=== PATIENT | female | born 1985 | race Caucasian/White ===

== ENCOUNTER 2017-07-25 18:34 | Inpatient (IN) | payer SELFPAY ==
[2017-07-25 19:10] VITALS: BMI 19.3
[2017-07-25] MEDS ORDERED: ACETAMINOPHEN 325 MG TABLET (FP) PO PRN (19:23)
[2017-07-25] MEDS ORDERED: LOPERAMIDE HCL 2 MG CAPSULE PO PRN (19:23)
[2017-07-25] MEDS ORDERED: NICOTINE POLACRILEX 2 MG GUM BC PRN (19:23)
[2017-07-25] MEDS ORDERED: hydrOXYzine PAMOATE 50 MG CAPSULE (FP) PO PRN (19:23)
[2017-07-25] MEDS ORDERED: MAGNESIUM CITRATE 300 ML BOTTLE PO PRN (19:23)
[2017-07-25] MEDS ORDERED: MENTHOL/PHENOL 1 EACH UD MM PRN (19:23)
[2017-07-25] MEDS ORDERED: IBUPROFEN 400 MG TABLET (FP) PO PRN (19:23)
[2017-07-25] MEDS ORDERED: MAGNESIUM HYDROX 2400MG/30ML ORAL SUSPENSION 30 ML CUP PO PRN (19:23)
[2017-07-25] MEDS ORDERED: guaiFENesin/D-METHORPHAN HB 10 ML UNIT-DOSE CUPS PO PRN (19:23)
[2017-07-25] MEDS ORDERED: METHADONE HCL 10 MG TABLET (FOR DETOX USE ONLY) PO ONE ×2 (19:23→23:00)
[2017-07-25] MEDS ORDERED: P-EPHED 60MG/TRIPROLIDI 2.5MG TABLET PO PRN (19:23)
[2017-07-25] MEDS ORDERED: MAG HYDROX/AL HYDROX/SIMETH 30 ML UNIT-DOSE CUP PO PRN (19:23)
--- NOTE | 2017-07-25 19:33 | HP ---
COWS - Scale Resting Pulse: 2= RI 101-120 Sweatin=Flushed/Facial Moisture Restless Observation: 3= Extraneous Movement Pupil Size: 2= Moderately Dilated Bone or Joint Aches: 1= Mild Discomfort Runny Nose/ Eye Tearin= Runny Nose/Eyes GI Upset > 30mins: 1= Stomach Cramp Tremor Observation: 2= Slight Tremor Visible Yawning Observation: 2= >3x During Session Anxiety or Irritability: 2=Irritable/Anxious Goose Flesh Skin: 3=Piloerection COWS Score: 22 Admission [facility] - HPI Chief Complaint: Withdrawal sx. Allergies/Adverse Reactions: Allergies Allergy/AdvReac Type Severity Reaction Status Date / Time Penicillins Allergy Verified 07/25/17 19:22 History of Present Illness: 32 y/o woman with a 6 months hx. of heroin dependence is admitted for detox. Pt. denies previous treatment. Prior to using heroin she was using percocet for 5 yrs. Exam Limitations: No Limitations - Ebola screening Have you traveled outside of the country in the last 21 days: No Have you had contact with anyone from an Ebola affected area: No Have you been sick,other than usual withdrawal symptoms: No Do you have a fever: No - Review of Systems Constitutional: Diaphoresis EENT: reports: Tearing, Nose Congestion Respiratory: reports: No Symptoms reported Cardiac: reports: No Symptoms Reported GI: reports: Nausea, Abdominal cramping : reports: No Symptoms Reported Musculoskeletal: reports: Back Pain, Joint Pain, Muscle Pain Integumentary: reports: Flushing, Sweating Neuro: reports: Tremors Endocrine: reports: No Symptoms Reported Hematology: reports: No Symptoms Reported Psychiatric: reports: No Sypmtoms Reported Other Systems: Reviewed and Negative Patient History - Patient Medical History Hx Anemia: No Hx Asthma: No Hx Chronic Obstructive Pulmonary Disease (COPD): No Hx Cancer: No Hx Cardiac Disorders: No Hx Congestive Heart Failure: No Hx Hypertension: No Hx Hypercholesterolemia: No Hx Pacemaker: No HX Cerebrovascular Accident: No Hx Seizures: No Hx Dementia: No Hx Diabetes: No Hx Gastrointestinal Disorders: No Hx Liver Disease: No Hx Genitourinary Disorders: No Hx Sexually Transmitted Disorders: Yes (HPV) Hx Renal Disease (ESRD): No Hx Thyroid Disease: No Hx Human Immunodeficiency Virus (HIV): No Hx Hepatitis C: No Hx Depression: Yes (since the of farther in 12/2015) Hx Suicide Attempt: No Hx Bipolar Disorder: No Hx Schizophrenia: No - Patient Surgical History Past Surgical History: No - PPD History Previous Implant?: Yes Documented Results: Negative w/o proof Implanted On Prior [facility] Admission?: No PPD to be Administered?: Yes - Reproductive History Patient is a Female of Child Bearing Age (11 -55 yrs old): Yes Last Menstrual Period: 06/30/17 Patient : No - Smoking Cessation Smoking history: Current every day smoker Aproximately how many cigarettes per day: 10 Hx Chewing Tobacco Use: No Initiated information on smoking cessation: Yes 'Breaking Loose' booklet given: 07/25/17 - Substance & Tx. History Hx Alcohol Use: No Hx Substance Use: Yes Substance Use Type: Heroin Hx Substance Use Treatment: Yes (Suboxone x 2 yrs.) - Substances Abused Heroin Route: Inhalation Frequency: Daily Amount used: 14 bags Age of first use: 31 Date of Last Use: 07/24/17 Family Disease History - Family Disease History Family Disease History: Diabetes: Father (melanoma, ), [place]: Father Admission Physical Exam [facility] - Vital Signs Vital Signs: Vital Signs - 24 hr 07/25/17 19:00 Temperature 97.7 F Pulse Rate 114 H Respiratory 18 Rate Blood Pressure 103/62 - Physical General Appearance: Yes: Tremorous, Irritable, Sweating, Anxious HEENTM: Yes: Nasal Congestion, Rhinorrhea Respiratory: Yes: Chest Non-Tender, Lungs Clear, Normal Breath Sounds Neck: Yes: Supple Breast: Yes: Breast Exam Deferred Cardiology: Yes: Regular Rhythm, Regular Rate, S1, S2 Abdominal: Yes: Normal Bowel Sounds, Non Tender, Flat, Soft Genitourinary: Yes: Within Normal Limits Back: Yes: Within Normal Limits Musculoskeletal: Yes: Within Normal Limits Extremities: Yes: Tremors Neurological: Yes: Fully Oriented, Alert Integumentary: Yes: Diaphoresis Lymphatic: Yes: Within Normal Limits - Diagnostic (1) Opioid dependence with withdrawal Current Visit: Yes Status: Acute Cleared for Admission [facility] - Detox or Rehab [facility] Level of Care: Medically Managed Detox Regimen/Protocol: Methadone [facility] Breath Alcohol Content Breath Alcohol Content: 0 Urine Pregancy Test - Result Urine Test Results: Negative- NO Line Present Urine Drug Screen - Results Drug Screen Negative: No Urine Drug Screen Results: OPI-Opiates, BZO-Benzodiazepines
[2017-07-25] MEDS ORDERED: METHADONE HCL 10 MG TABLET (FOR DETOX USE ONLY) ONE (22:04)
[2017-07-25] MEDS: THIAMINE HCL 100 MG TABLET (FP) PO SCH (22:09)
[2017-07-25] MEDS: diazePAM 5 MG TABLET PO PRN (22:10)
[2017-07-25] MEDS: diphenhydrAMINE HCL 50 MG CAPSULE PO PRN (22:10)
[2017-07-25] MEDS: NICOTINE 21 MG/24 HOURS TOPICAL PATCH TD SCH (22:13)
[2017-07-25 22:58] LABS: URINE APPEARANCE CLEAR; URINE BILIRUBIN NEGATIVE (NEGATIVE); URINE BLOOD NEGATIVE (NEGATIVE); URINE COLOR YELLOW; URINE GLUCOSE (UA) NEGATIVE (NEGATIVE); URINE KETONE 2+ (NEGATIVE); URINE NITRITE NEGATIVE (NEGATIVE); URINE PROTEIN NEGATIVE (NEGATIVE); URINE UROBILINOGEN NEGATIVE mg/dL (0.2-1.0)
[2017-07-26] MEDS: diphenhydrAMINE HCL 50 MG CAPSULE PO PRN (00:33)
[2017-07-26] MEDS ORDERED: TRIMETHOBENZAMIDE HCL 200MG/2ML INJ IM PRN (00:57)
[2017-07-26] MEDS: diazePAM 5 MG TABLET PO PRN ×4 (02:06→21:28)
--- NOTE | 2017-07-26 09:05 | PN ---
[facility] COWS - Scale Resting Pulse: 1= ND 81-100 Sweatin=Flushed/Facial Moisture Restless Observation: 1= Difficult to Sit Still Pupil Size: 1= Pupils >than Normal Bone or Joint Aches: 2= Severe Diffuse Aches Runny Nose/ Eye Tearin= Runny Nose/Eyes GI Upset > 30mins: 3= Vomiting/Diarrhea Tremor Observation of Outstretched Hands: 2= Slight Tremor Visible Yawning Observation: 1= 1-2x During Session Anxiety or Irritability: 2=Irritable/Anxious Goose Flesh Skin: 0=Smooth Skin COWS Score: 17 [facility] Progress Note (SOAP) Subjective: Anxiety,tremors,sweating,interrupted sleep,restless Objective: 07/26/17 09:02 Vital Signs 07/26/17 06:00 Temperature 98.6 F Pulse Rate 83 Respiratory 20 Rate Blood Pressure 120/76 Laboratory Tests 07/25/17 22:45 Urine Color Yellow Urine Appearance Clear Urine pH 6.0 Urine Protein Negative Urine Glucose (UA) Negative Urine Ketones 2+ H Urine Blood Negative Urine Nitrite Negative Urine Bilirubin Negative Urine Urobilinogen Negative u/a noted Assessment: 07/26/17 09:02 Withdrawal sx. Plan: Continue detox [facility] prn
[2017-07-26 09:55] LABS: MCH 29.4 pg (25.7-33.7); MEAN CELL VOLUME 89.1 fl (80-96); MEAN PLT VOLUME 7.3 fl (7.5-11.1); PLATELET COUNT 364 K/MM3 (134-434); RDW 13.1 % (11.6-15.6); WHITE BLOOD COUNT 14.1 K/mm3 (4.0-10.0)
[2017-07-26] MEDS ORDERED: METHADONE HCL 10 MG TABLET (FOR DETOX USE ONLY) PO ONE (10:00)
[2017-07-26] MEDS ORDERED: ONDANSETRON *ODT* 4 MG TABLET SL ONE (10:15)
[2017-07-26 10:19] LABS: ALBUMIN 4.3 g/dl (3.4-5.0); ALK PHOS 69 U/L (45-117); ANION GAP 12 (8-16); CALCIUM 9.5 mg/dL (8.5-10.1); CO2 26 mmol/L (21-32); CREATININE 0.8 mg/dL (0.55-1.02); GLUCOSE,RANDOM 102 mg/dL (74-106); SGOT/AST 12 U/L (15-37); SGPT/ALT 18 U/L (12-78); TOT PROT 7.7 g/dl (6.4-8.2)
[2017-07-26] MEDS: PRENATAL VITAMINS W/ FOLIC ACID TABLET (FP) PO SCH (10:22)
[2017-07-26] MEDS: NICOTINE 21 MG/24 HOURS TOPICAL PATCH TD SCH (10:22)
--- NOTE | 2017-07-26 11:01 | EKG ---
Test Reason : Blood Pressure : / mmHG Vent. Rate : 097 BPM Atrial Rate : 097 BPM P-R Int : 150 ms QRS Dur : 090 ms QT Int : 362 ms P-R-T Axes : 083 064 067 degrees QTc Int : 459 ms NORMAL SINUS RHYTHM NORMAL ECG NO PREVIOUS ECGS AVAILABLE Confirmed by VELVET DAVIS, SELVIN ([id number]) on 07/26/2017 11:00:57 AM Referred By: Genevieve Black Confirmed By:SELVIN VERDIN MD
[2017-07-26] MEDS ORDERED: FLU VACCINE QUAD 60 MCG/0.5 ML (MDV 17-18) IM ONE (12:00)
--- NOTE | 2017-07-26 13:11 | CONSULT ---
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 She started using heroin at age 31, consumes 14 bags daily. Last used on 07/24/17 Medical History: Unremakable. Smokes 10 cigaretes daily Psychiatric History: Denies history of previous psychiatric treatment. However, reports feeling very anxious and sleeping poorly at present Physical/Sexual Abuse/Trauma History: Denies history of verbal, physical or sexual abuse as well as DV relationship Additional Comment: Reports history of 2 previous misdemeanor arrests. Mental Status Exam - Mental Status Exam Alert and Oriented to: Time, Place, Person Cognitive Function: Fair Patient Appearance: Well Groomed Mood: Anxious (very) Affect: Appropriate Patient Behavior: Cooperative Speech Pattern: Clear Voice Loudness: Normal Thought Process: Intact, Goal Oriented Thought Disorder: Not Present Hallucinations: Denies Suicidal Ideation: Denies Homicidal Ideation: Denies Insight/Judgement: Poor Sleep: Poorly Appetite: Fair Muscle strength/Tone: Normal Gait/Station: Normal Psychiatric Findings - Problem List (Merkel 1, 2,3) (1) Substance induced mood disorder Current Visit: Yes Status: Acute (2) Substance-induced sleep disorder Current Visit: Yes Status: Acute (3) Opioid dependence with withdrawal Current Visit: Yes Status: Acute (4) Nicotine dependence Current Visit: Yes Status: Acute - Initial Treatment Plan Initial Treatment Plan: 1) Start Ambien 10 mg po HS prn for insomnia. 2) Continue inpatient detoxification
[2017-07-26] MEDS ORDERED: ZOLPIDEM TARTRATE 10 MG TABLET (PARK CARE ONLY) PO PRN (13:20)
[2017-07-26 13:54] LABS: URINE LEUK ESTERASE Negative (NEGATIVE)
[2017-07-26] MEDS: POTASSIUM CHLORIDE TABS 20 MEQ TABLET.ER (FP) PO SCH (15:41)
[2017-07-26] MEDS: ONDANSETRON *ODT* 4 MG TABLET SL PRN (17:34)
[2017-07-26] MEDS: TRIMETHOBENZAMIDE HCL 200MG/2ML INJ IM PRN (20:32)
[2017-07-26] MEDS: THIAMINE HCL 100 MG TABLET (FP) PO SCH (21:28)
[2017-07-27] MEDS: diazePAM 5 MG TABLET PO PRN (02:56)
[2017-07-27] MEDS: ONDANSETRON *ODT* 4 MG TABLET SL PRN (03:11)
[2017-07-27] MEDS: TRIMETHOBENZAMIDE HCL 200MG/2ML INJ IM PRN (07:43)
--- NOTE | 2017-07-27 09:10 | PN ---
S COWS - Scale Resting Pulse: 0= NM 80 or Below Sweatin=Flushed/Facial Moisture Restless Observation: 3= Extraneous Movement Pupil Size: 1= Pupils >than Normal Bone or Joint Aches: 2= Severe Diffuse Aches Runny Nose/ Eye Tearin= Runny Nose/Eyes GI Upset > 30mins: 3= Vomiting/Diarrhea Tremor Observation of Outstretched Hands: 2= Slight Tremor Visible Yawning Observation: 2= >3x During Session Anxiety or Irritability: 4=Extreme Anxiety Goose Flesh Skin: 0=Smooth Skin COWS Score: 21 [facility] Progress Note (SOAP) Subjective: ALERT,ABDOMINAL PAIN,NAUSEA AND VOMITING,DIARRHEA Objective: 07/27/17 09:02 Vital Signs Temperature 96.4 F L 07/27/17 06:10 Pulse Rate 58 L 07/27/17 06:10 Respiratory Rate 18 07/27/17 06:10 Blood Pressure 117/68 07/27/17 06:10 O2 Sat by Pulse Oximetry (%) EKG NSR,NORMAL ECG Laboratory Last Values WBC 14.1 K/mm3 (4.0-10.0) H 07/26/17 07:30 RBC 4.91 M/mm3 (3.60-5.2) 07/26/17 07:30 Hgb 14.5 GM/dL (10.7-15.3) 07/26/17 07:30 Hct 43.8 % (32.4-45.2) 07/26/17 07:30 MCV 89.1 fl (80-96) 07/26/17 07:30 MCH 29.4 pg (25.7-33.7) 07/26/17 07:30 MCHC 33.0 g/dl (32.0-36.0) 07/26/17 07:30 RDW 13.1 % (11.6-15.6) 07/26/17 07:30 Plt Count 364 K/MM3 (134-434) 07/26/17 07:30 MPV 7.3 fl (7.5-11.1) L 07/26/17 07:30 Sodium 141 mmol/L (136-145) 07/26/17 07:30 Potassium 3.4 mmol/L (3.5-5.1) L 07/26/17 07:30 Chloride 103 mmol/L (98-107) 07/26/17 07:30 Carbon Dioxide 26 mmol/L (21-32) 07/26/17 07:30 Anion Gap 12 (8-16) 07/26/17 07:30 BUN 6 mg/dL (7-18) L 07/26/17 07:30 Creatinine 0.8 mg/dL (0.55-1.02) 07/26/17 07:30 Creat Clearance w eGFR > 60 (>60) 07/26/17 07:30 Random Glucose 102 mg/dL (74-106) 07/26/17 07:30 Calcium 9.5 mg/dL (8.5-10.1) 07/26/17 07:30 Total Bilirubin 1.0 mg/dL (0.2-1.0) 07/26/17 07:30 AST 12 U/L (15-37) L 07/26/17 07:30 ALT 18 U/L (12-78) 07/26/17 07:30 Alkaline Phosphatase 69 U/L (45-117) 07/26/17 07:30 Total Protein 7.7 g/dl (6.4-8.2) 07/26/17 07:30 Albumin 4.3 g/dl (3.4-5.0) 07/26/17 07:30 Urine Color Yellow 07/25/17 22:45 Urine Appearance Clear 07/25/17 22:45 Urine pH 6.0 (5.0-8.0) 07/25/17 22:45 Ur Specific [place] 1.020 (1.005-1.025) 07/25/17 22:45 Urine Protein Negative (NEGATIVE) 07/25/17 22:45 Urine Glucose (UA) Negative (NEGATIVE) 07/25/17 22:45 Urine Ketones 2+ (NEGATIVE) H 07/25/17 22:45 Urine Blood Negative (NEGATIVE) 07/25/17 22:45 Urine Nitrite Negative (NEGATIVE) 07/25/17 22:45 Urine Bilirubin Negative (NEGATIVE) 07/25/17 22:45 Urine Urobilinogen Negative mg/dL (0.2-1.0) 07/25/17 22:45 Ur Leukocyte Esterase Negative (NEGATIVE) 07/25/17 22:45 RPR Titer Nonreactive (NONREACTIVE) 07/26/17 07:30 Assessment: 07/27/17 09:03 WITHDRAWAL SYMPTOM Plan: CONTINUE DETOX
--- NOTE | 2017-07-27 09:20 | PN ---
RAPHAEL Progress Note Note: ABDOMINAL PAIN WITH PERSISTENT VOMITING DRY LIP AND MUCOSA INTRACTABLE ABDOMINAL PAIN AND VOMITING PATIENT TO BE TRANSFERRED TO [facility] ER FOR EVALUATION AND TREATMENT
[2017-07-27] MEDS ORDERED: METHADONE HCL 5 MG TABLET (FOR DETOX USE ONLY) PO ONE (10:00)
[2017-07-27 10:04] VITALS: BP 129/55; PULSE 99; TEMP 97.7
[2017-07-27] MEDS: NICOTINE 21 MG/24 HOURS TOPICAL PATCH TD SCH (11:07)
[2017-07-27] MEDS: POTASSIUM CHLORIDE TABS 20 MEQ TABLET.ER (FP) PO SCH (11:07)
[2017-07-27] MEDS: PRENATAL VITAMINS W/ FOLIC ACID TABLET (FP) PO SCH (11:07)
[2017-07-28] MEDS ORDERED: METHADONE HCL 5 MG TABLET (FOR DETOX USE ONLY) PO ONE (10:00)
--- NOTE | 2017-07-28 17:41 | DS ---
[facility] Detox Discharge Summary Admission Date: 07/25/17 Discharge Date: 07/27/17 - History Present History: Opioid Dependence Additional Comments: Patient transferred to [facility] and admitted from ED with intractable nausea and vomiting, hypokalemia and dehydration. Pertinent Past History: nicotine dependence, anxiety, depression , insomnia - Physical Exam Results Vital Signs: Vital Signs Temperature 97.7 F 07/27/17 10:04 Pulse Rate 99 H 07/27/17 10:04 Respiratory Rate 18 07/27/17 10:04 Blood Pressure 129/55 07/27/17 10:04 O2 Sat by Pulse Oximetry (%) Pertinent Admission Physical Exam Findings: opioid withdrawal sx - Treatment Hospital Course: Detox Protocol Followed Patient has Accepted a Rehab Referral to: Unknown at this time but would like to go to rehab - Medication Discharge Medications: Ambulatory Orders Methadone (Detox) [Dolophine -] 20 mg PO DAILY 07/27/17 - Diagnosis (1) Nausea & vomiting Status: Acute (2) Nicotine dependence Status: Acute (3) Opioid dependence with withdrawal Status: Acute (4) Substance induced mood disorder Status: Acute (5) Substance-induced sleep disorder Status: Acute - AMA Did Patient Leave Against Medical Advice: No
[2017-07-29] MEDS ORDERED: METHADONE HCL 10 MG TABLET (FOR DETOX USE ONLY) PO ONE (10:00)
[2017-07-30] MEDS ORDERED: METHADONE HCL 5 MG TABLET (FOR DETOX USE ONLY) PO ONE (06:00)
== END 2017-07-27 19:07 | disposition short-term general hospital (02) | DRG 773 ==
LOC: YASAS 18:34 → Y6N 19:47
PROVIDERS: ADMIT Internal Medicine; ATTEND Internal Medicine
PROC: HZ2ZZZZ Detoxification Services for Substance Abuse Treatment (ICD-10-PCS; principal; 2017-07-25)
DX: F11.23 Opioid dependence with withdrawal (principal); F17.210 Nicotine dependence, cigarettes, uncomplicated; F19.24 Other psychoactive substance dependence with psychoactive substance-induced mood disorder; F19.282 Other psychoactive substance dependence with psychoactive substance-induced sleep disorder; R11.2 Nausea with vomiting, unspecified; R19.7 Diarrhea, unspecified; E87.6 Hypokalemia; E86.0 Dehydration; Z88.0 Allergy status to penicillin; Z87.42 Personal history of other diseases of the female genital tract
CPT/HCPCS: 36415; 80053; 81003; 85027; 86593; 93005; 93010

== ENCOUNTER 2017-07-27 10:17 | Inpatient (IN) | payer SELFPAY ==
[2017-07-27 10:36] VITALS: BMI 18.8
--- NOTE | 2017-07-27 10:46 | PDOC ---
History of Present Illness - General Chief Complaint: Nausea/Vomiting Stated Complaint: VOMITING Time Seen by Provider: 07/27/17 10:45 Past History - Past Medical History Allergies/Adverse Reactions: Allergies Allergy/AdvReac Type Severity Reaction Status Date / Time Penicillins Allergy Verified 07/27/17 10:36 Home Medications: Ambulatory Orders NK [No Known Home Medication] 07/25/17 Anemia: No Asthma: No Cancer: No Cardiac Disorders: No CVA: No COPD: No CHF: No Dementia: No Diabetes: No GI Disorders: No Disorders: No HTN: No Hypercholesterolemia: No Kidney Stones: No Liver Disease: No Psychiatric Problems: Yes (ANXIETY/DEPRESSION) Seizures: No Thyroid Disease: No - Reproductive History PID: No - Suicide/Smoking/Psychosocial Hx Smoking History: Current every day smoker Number of Cigarettes Smoked Daily: 10 Information on smoking cessation initiated: No 'Breaking Loose' booklet given: 07/25/17 Hx Alcohol Use: No Drug/Substance Use Hx: Yes (HEROIN) Substance Use Type: Heroin Hx Substance Use Treatment: Yes (Suboxone x 2 yrs.) *Physical Exam - Vital Signs Last Vital Signs Temp Pulse Resp BP Pulse Ox 98.6 F 96 H 16 101/75 100 07/27/17 10:20 07/27/17 10:20 07/27/17 10:20 07/27/17 10:20 07/27/17 10:20
[2017-07-27] MEDS ORDERED: ALBUTEROL SO4 0.083% IH SOL 2.5 MG/3 ML VIAL.NEB. NEB ONE ×2 (11:03→11:11)
[2017-07-27] MEDS ORDERED: ONDANSETRON 4 MG/2 ML VIAL IVPB ONE (11:03)
[2017-07-27] MEDS ORDERED: SODIUM CHLORIDE 1,000 ML IV STA (11:03)
[2017-07-27] MEDS ORDERED: ONDANSETRON 4 MG/2 ML VIAL ONE (11:11)
[2017-07-27 11:23] LABS: BASOPHIL 0.7 % (0-2.0); EOSINOPHIL 0.1 % (0-4.5); MCHC 34.4 g/dl (32.0-36.0); MEAN CELL VOLUME 87.3 fl (80-96); MEAN PLT VOLUME 7.4 fl (7.5-11.1); NEUTROPHILS 77.9 % (42.8-82.8); PLATELET COUNT 398 K/MM3 (134-434); RDW 13.1 % (11.6-15.6); WHITE BLOOD COUNT 16.9 K/mm3 (4.0-10.0)
[2017-07-27 11:25] LABS: URINE APPEARANCE CLOUDY; URINE BILIRUBIN NEGATIVE (NEGATIVE); URINE BLOOD 3+ (NEGATIVE); URINE COLOR AMBER; URINE GLUCOSE (UA) NEGATIVE (NEGATIVE); URINE KETONE TRACE (NEGATIVE); URINE NITRITE NEGATIVE (NEGATIVE); URINE UROBILINOGEN NEGATIVE mg/dL (0.2-1.0)
[2017-07-27] MEDS ORDERED: METHADONE HCL 10 MG TABLET PO ONE (11:27)
[2017-07-27 11:29] LABS: URINE PROTEIN 2+ (NEGATIVE)
[2017-07-27 11:38] LABS: URINE BACTERIA FEW /hpf (NONE SEEN); URINE MUCUS MODERATE; URINE RBC 966 /hpf (0-3); URINE WBC 68 /hpf (3-5)
[2017-07-27 11:41] LABS: ALBUMIN 4.3 g/dl (3.4-5.0); ANION GAP 16 (8-16); CALCIUM 9.8 mg/dL (8.5-10.1); CO2 30 mmol/L (21-32); GLUCOSE,RANDOM 101 mg/dL (74-106)
[2017-07-27] MEDS ORDERED: METHADONE HCL 10 MG TABLET ONE (11:42)
[2017-07-27 11:45] LABS: ALK PHOS 68 U/L (45-117); BILIRUBIN,TOTAL 0.6 mg/dL (0.2-1.0); CREATININE 0.9 mg/dL (0.55-1.02); SGOT/AST 65 U/L (15-37); SGPT/ALT 33 U/L (12-78); TOT PROT 7.9 g/dl (6.4-8.2)
--- NOTE | 2017-07-27 11:51 | PDOC ---
History of Present Illness - History of Present Illness Initial Comments: 07/27/17 11:47 32 y/o F with a PMHx of heroin abuse presents to the ED sent from [facility] with generalized pain and weakness for 2 days. Patient reports associated episodes of chills, nausea and vomiting. She also reports diffuse cramp-like abdominal pain and cough. Her last heroin use was 3 days ago. Her last dose of Methadone was 20 mg yesterday. She has been using heroin for 6 months and only smokes. She denies IV drug use. She denies alcohol use. She denies chest pain, SOB. Denies diarrhea, constipation. Denies fever. Denies dysuria or urinary frequency. Denies flank pain. Is not sexually active. Is currently on her period. <Michael Gupta - Last Filed: 07/27/17 13:13> <Megan Dailey - Last Filed: 07/27/17 14:30> - General Chief Complaint: Nausea/Vomiting Stated Complaint: VOMITING Time Seen by Provider: 07/27/17 10:45 Past History - Past Medical History Anemia: No Asthma: No Cancer: No Cardiac Disorders: No CVA: No COPD: No CHF: No Dementia: No Diabetes: No GI Disorders: No Disorders: No HTN: No Hypercholesterolemia: No Kidney Stones: No Liver Disease: No Psychiatric Problems: Yes (ANXIETY/DEPRESSION) Seizures: No Thyroid Disease: No - Reproductive History PID: No - Suicide/Smoking/Psychosocial Hx Smoking History: Current every day smoker Number of Cigarettes Smoked Daily: 10 Information on smoking cessation initiated: No 'Breaking Loose' booklet given: 07/25/17 Hx Alcohol Use: No Drug/Substance Use Hx: Yes (HEROIN) Substance Use Type: Heroin Hx Substance Use Treatment: Yes (Suboxone x 2 yrs.) <Michael Gupta - Last Filed: 07/27/17 13:13> <Megan Dailey - Last Filed: 07/27/17 14:30> - Past Medical History Allergies/Adverse Reactions: Allergies Allergy/AdvReac Type Severity Reaction Status Date / Time Penicillins Allergy Verified 07/27/17 10:36 Home Medications: Ambulatory Orders Methadone (Detox) [Dolophine -] 20 mg PO DAILY 07/27/17 Review of Systems - Review of Systems Comments:: 07/27/17 11:48 "GENERAL/CONSTITUTIONAL: (+) generalized pain, weakness, chills. No fever. HEAD, EYES, EARS, NOSE AND THROAT: No change in vision. No ear pain or discharge. No sore throat. CARDIOVASCULAR: No chest pain or shortness of breath. RESPIRATORY: (+) cough. No wheezing, or hemoptysis. GASTROINTESTINAL: (+) nausea, vomiting, abdominal cramping. No diarrhea or constipation. GENITOURINARY: No dysuria, frequency, or change in urination. MUSCULOSKELETAL: No joint or muscle swelling or pain. No neck or back pain. SKIN: No rash NEUROLOGIC: No headache, vertigo, loss of consciousness, or change in strength/ sensation. ENDOCRINE: No increased thirst. No abnormal weight change. HEMATOLOGIC/LYMPHATIC: No anemia, easy bleeding, or history of blood clots. ALLERGIC/IMMUNOLOGIC: No hives or skin allergy." <Michael Gupta - Last Filed: 07/27/17 13:13> *Physical Exam - Vital Signs Last Vital Signs Temp Pulse Resp BP Pulse Ox 98.6 F 96 H 16 101/75 100 07/27/17 10:20 07/27/17 10:20 07/27/17 10:20 07/27/17 10:20 07/27/17 10:20 - Physical Exam Comments: 07/27/17 11:48 "GENERAL: Awake, alert, and fully oriented, in no acute distress HEAD: No signs of trauma EYES: PERRLA, EOMI, sclera anicteric, conjunctiva clear ENT: Auricles normal inspection, hearing grossly normal, nares patent, oropharynx clear without exudates. Moist mucosa NECK: Nontender, no stepoffs, Normal ROM, supple, no lymphadenopathy, JVD, or masses LUNGS: Breath sounds equal, clear to auscultation bilaterally. No wheezes, and no crackles HEART: Regular rate and rhythm, normal S1 and S2, no murmurs, rubs or gallops ABDOMEN: Soft, nontender, normoactive bowel sounds. No guarding, no rebound. No masses EXTREMITIES: Normal range of motion, no edema. No clubbing or cyanosis. No cords, erythema, or tenderness NEUROLOGICAL: Cranial nerves II through XII intact. 5/5 strength and sensation in all extremities, Normal speech, normal gait SKIN: Warm, Dry, normal turgor, no rashes or lesions noted. " <Ou,Michael - Last Filed: 07/27/17 13:13> - Vital Signs Last Vital Signs Temp Pulse Resp BP Pulse Ox 97.5 F L 64 18 117/72 98 07/27/17 13:50 07/27/17 13:50 07/27/17 13:50 07/27/17 13:50 07/27/17 13:50 <Megan Dailey - Last Filed: 07/27/17 14:30> ED Treatment Course - LABORATORY CBC & Chemistry Diagram: 07/27/17 11:08 07/27/17 11:08 - ADDITIONAL ORDERS Additional order review: Laboratory Results 07/27/17 07/27/17 11:08 11:08 Sodium 138 Potassium 3.2 L Chloride 92 L D Carbon Dioxide 30 Anion Gap 16 BUN 14 D Creatinine 0.9 Creat Clearance w eGFR > 60 Random Glucose 101 Calcium 9.8 Total Bilirubin 0.6 D AST 65 H D ALT 33 D Alkaline Phosphatase 68 Total Protein 7.9 Albumin 4.3 Lipase 206 Urine Color [place] Urine Appearance Cloudy Urine pH 8.0 D Urine Protein 2+ H Urine Glucose (UA) Negative Urine Ketones Trace H Urine Blood 3+ H Urine Nitrite Negative Urine Bilirubin Negative Urine Urobilinogen Negative Urine RBC 966 Urine WBC 68 Ur Epithelial Cells Moderate Urine Bacteria Few Urine Mucus Moderate 07/27/17 11:08 RBC 5.39 H MCV 87.3 MCHC 34.4 RDW 13.1 MPV 7.4 L Neutrophils % 77.9 Lymphocytes % 14.4 Monocytes % 6.9 Eosinophils % 0.1 Basophils % 0.7 - RADIOLOGY Radiology Studies Ordered: Category Date Time Status CHEST PA & LAT [RAD] Stat Radiology 07/27/17 11:02 Ordered - Medications Given in the ED: ED Medications Discontinued Medications Generic Name Dose Route Start Last Admin Trade Name Freq PRN Reason Stop Dose Admin Albuterol Sulfate 1 amp 07/27/17 11:03 07/27/17 11:10 Ventolin 0.083% Nebulizer Soln - NEB 07/27/17 11:04 1 amp ONCE ONE Administration Ondansetron HCl 4 mg 07/27/17 11:03 07/27/17 11:10 Zofran Injection IVPB 07/27/17 11:04 4 mg ONCE ONE Administration <Ou,Michael - Last Filed: 07/27/17 13:13> - LABORATORY CBC & Chemistry Diagram: 07/27/17 11:08 07/27/17 11:08 - ADDITIONAL ORDERS Additional order review: Laboratory Results 07/27/17 07/27/17 07/27/17 11:24 11:08 11:08 Sodium 138 Potassium 3.2 L Chloride 92 L D Carbon Dioxide 30 Anion Gap 16 BUN 14 D Creatinine 0.9 Creat Clearance w eGFR > 60 Random Glucose 101 Lactic Acid 5.0 H* Calcium 9.8 Total Bilirubin 0.6 D AST 65 H D ALT 33 D Alkaline Phosphatase 68 Total Protein 7.9 Albumin 4.3 Lipase 206 Urine Color [place] Urine Appearance Cloudy Urine pH 8.0 D Urine Protein 2+ H Urine Glucose (UA) Negative Urine Ketones Trace H Urine Blood 3+ H Urine Nitrite Negative Urine Bilirubin Negative Urine Urobilinogen Negative Urine RBC 966 Urine WBC 68 Ur Epithelial Cells Moderate Urine Bacteria Few Urine Mucus Moderate 07/27/17 11:08 RBC 5.39 H MCV 87.3 MCHC 34.4 RDW 13.1 MPV 7.4 L Neutrophils % 77.9 Lymphocytes % 14.4 Monocytes % 6.9 Eosinophils % 0.1 Basophils % 0.7 - RADIOLOGY Radiograph Interpretation: 07/27/17 14:29 Chest X-Ray reported by Dr. Maeve Tillman Impression: Unremarkable examination without evidence of acute lung disease. - Medications Given in the ED: ED Medications Discontinued Medications Generic Name Dose Route Start Last Admin Trade Name Freq PRN Reason Stop Dose Admin Albuterol Sulfate 1 amp 07/27/17 11:03 07/27/17 11:10 Ventolin 0.083% Nebulizer Soln - NEB 07/27/17 11:04 1 amp ONCE ONE Administration Sodium Chloride 1,000 mls @ 1,000 mls/hr 07/27/17 11:03 07/27/17 11:10 Normal Saline - IV 07/27/17 12:02 1,000 mls/hr ASDIR STA Administration Lorazepam 1 mg 07/27/17 13:32 07/27/17 13:48 Ativan Injection - IVPUSH 07/27/17 13:33 1 mg ONCE ONE Administration Methadone HCl 20 mg 07/27/17 11:27 07/27/17 11:47 Dolophine - PO 07/27/17 11:28 20 mg ONCE ONE Administration Metoclopramide HCl 10 mg 07/27/17 13:32 07/27/17 13:48 Reglan Injection - IVPB 07/27/17 13:33 10 mg ONCE ONE Administration Ondansetron HCl 4 mg 07/27/17 11:03 07/27/17 11:10 Zofran Injection IVPB 07/27/17 11:04 4 mg ONCE ONE Administration <Megan Dailey - Last Filed: 07/27/17 14:30> Medical Decision Making - Medical Decision Making 07/27/17 11:49 32 F with generalized bodyaches, malaise, nausea, vomiting after stopping heroin use 3 days ago. Pt likely in active opiate withdrawal. No focal abdominal tenderness on exam. Pt with no fevers or signs of infection. - Labs, UA, UPT - IVF, zofran, methadone 07/27/17 13:05 Pt reassessed s/p meds, still with active nausea and vomiting. Repeat abdominal exam continues to be non-focal. Pt's symptoms consistent with opiate withdrawal. Pt's labwork notable for lactate 5.0. Will fluid resuscitate and recheck. 07/27/17 13:11 Pt to be admitted for continued IV hydration and nausea control, as well as serial abdominal exams with possible imaging if pt continues to not tolerate PO. Case discussed in detail with admitting physician including history, physical exam and ancillary studies. Admitting physician has assumed care for the patient and will follow all pending diagnostics and complete the evaluation and treatment. <Michael Gupta - Last Filed: 07/27/17 13:13> *DC/Admit/Observation/Transfer - Discharge Dispostion Admit: Yes - Attestations Physician Attestion: 07/27/17 13:13 I, Dr. Michael Gupta MD, attest that this document has been prepared under my direction and personally reviewed by me in its entirety. I further attest, that it accurately reflects all work, treatment, procedures and medical decision -making performed by me. <Michael Gupta - Last Filed: 07/27/17 13:13> <Megan Dailey - Last Filed: 07/27/17 14:30> Diagnosis at time of Disposition: Opiate withdrawal, Nausea & vomiting
[2017-07-27] MEDS: DEXTROSE 5%-0.45% SALINE 1,000 ML IV SCH (12:33)
[2017-07-27] MEDS ORDERED: METOCLOPRAMIDE HCL INJECTION 10 MG/2 ML VIAL IVPB ONE (13:32)
[2017-07-27] MEDS ORDERED: METOCLOPRAMIDE HCL INJECTION 10 MG/2 ML VIAL ONE (13:39)
[2017-07-27] MEDS ORDERED: LORazepam 2 MG/ML SDV VIAL ONE (13:40)
--- NOTE | 2017-07-27 17:12 | HP ---
Admitting History and Physical - Primary Care Physician PCP: Douglas Boone - Admission History of Present Illness: 32 y/o F with a PMHx of heroin abuse presents to the ED sent from [facility] with generalized pain and weakness for 2 days. Patient reports associated episodes of chills, nausea and vomiting. She also reports diffuse cramp-like abdominal pain and cough. Her last heroin use was 3 days ago. Her last dose of Methadone was 20 mg yesterday. She has been using heroin for 6 months and only smokes. She denies IV drug use. She denies alcohol use. She denies chest pain, SOB. Denies any other symptom. Is not sexually active. Is currently on her period. - Past Medical History ...LMP: 06/30/17 - Smoking History Smoking history: Current every day smoker Have you smoked in the past 12 months: Yes Aproximately how many cigarettes per day: 10 - Alcohol/Substance Use Hx Alcohol Use: No History of Substance Use: reports: Heroin Home Medications - Allergies Allergies/Adverse Reactions: Allergies Allergy/AdvReac Type Severity Reaction Status Date / Time Penicillins Allergy Verified 07/27/17 10:36 - Home Medications Home Medications: Ambulatory Orders Methadone (Detox) [Dolophine -] 20 mg PO DAILY 07/27/17 Family Disease History - Family Disease History Family Disease History: Diabetes: Father (melanoma, ), CA: Father Physical Examination Vital Signs: Vital Signs Temperature 97.8 F 07/27/17 14:51 Pulse Rate 98 H 07/27/17 14:51 Respiratory Rate 18 07/27/17 14:51 Blood Pressure 115/6 07/27/17 14:51 O2 Sat by Pulse Oximetry (%) 98 07/27/17 13:50 Constitutional: Yes: No Distress HENT: Yes: Atraumatic Neck: Yes: Supple Cardiovascular: Yes: Regular Rate and Rhythm Respiratory: Yes: CTA Bilaterally Gastrointestinal: Yes: Normal Bowel Sounds Extremities: Yes: WNL Peripheral Pulses WNL: Yes Neurological: Yes: Alert, Oriented Problem List - Problems (1) Nausea & vomiting Assessment/Plan: ivf prn zofran Code(s): R11.2 - NAUSEA WITH VOMITING, UNSPECIFIED (2) Nicotine dependence Assessment/Plan: nicotine patch Code(s): F17.200 - NICOTINE DEPENDENCE, UNSPECIFIED, UNCOMPLICATED (3) Opiate withdrawal Assessment/Plan: will get detox consult on methadone Code(s): F11.23 - OPIOID DEPENDENCE WITH WITHDRAWAL (4) Opioid dependence with withdrawal Code(s): F11.23 - OPIOID DEPENDENCE WITH WITHDRAWAL Assessment/Plan Laboratory Tests 07/27/17 07/27/17 07/27/17 11:08 11:08 11:08 WBC 16.9 H RBC 5.39 H Hgb 16.2 H D Hct 47.0 H MCV 87.3 MCH 30.0 MCHC 34.4 RDW 13.1 Plt Count 398 MPV 7.4 L Neutrophils % 77.9 Lymphocytes % 14.4 Monocytes % 6.9 Eosinophils % 0.1 Basophils % 0.7 Sodium 138 Potassium 3.2 L Chloride 92 L D Carbon Dioxide 30 Anion Gap 16 BUN 14 D Creatinine 0.9 Creat Clearance w eGFR > 60 Random Glucose 101 Lactic Acid Calcium 9.8 Total Bilirubin 0.6 D AST 65 H D ALT 33 D Alkaline Phosphatase 68 Total Protein 7.9 Albumin 4.3 Lipase 206 Urine Color Conchis Urine Appearance Cloudy Urine pH 8.0 D Urine Protein 2+ H Urine Glucose (UA) Negative Urine Ketones Trace H Urine Blood 3+ H Urine Nitrite Negative Urine Bilirubin Negative Urine Urobilinogen Negative Urine RBC 966 Urine WBC 68 Ur Epithelial Cells Moderate Urine Bacteria Few Urine Mucus Moderate 07/27/17 11:24 WBC RBC Hgb Hct MCV MCH MCHC RDW Plt Count MPV Neutrophils % Lymphocytes % Monocytes % Eosinophils % Basophils % Sodium Potassium Chloride Carbon Dioxide Anion Gap BUN Creatinine Creat Clearance w eGFR Random Glucose Lactic Acid 5.0 H* Calcium Total Bilirubin AST ALT Alkaline Phosphatase Total Protein Albumin Lipase Urine Color Urine Appearance Urine pH Urine Protein Urine Glucose (UA) Urine Ketones Urine Blood Urine Nitrite Urine Bilirubin Urine Urobilinogen Urine RBC Urine WBC Ur Epithelial Cells Urine Bacteria Urine Mucus Active Medications Generic Name Dose Route Start Last Admin Trade Name Freq PRN Reason Stop Dose Admin Dextrose/Sodium Chloride 1,000 mls @ 100 mls/hr 07/27/17 11:15 07/27/17 12:33 D5-1/2ns - IV 100 mls/hr ASDIR RAFFAELE Administration Ibuprofen 600 mg 07/27/17 21:23 Motrin - PO Q6H PRN FEVER Methadone HCl 20 mg 07/28/17 06:00 Dolophine - PO DAILY@0600 [facility]FFAELE Ondansetron HCl 4 mg 07/27/17 21:24 Zofran Injection IVPB Q4H PRN NAUSEA AND/OR VOMITING
[2017-07-27 19:57] LABS: URINE LEUK ESTERASE TRACE (NEGATIVE)
[2017-07-27] MEDS: ONDANSETRON 4 MG/2 ML VIAL IVPB PRN (22:25)
[2017-07-27] MEDS: IBUPROFEN 600 MG TABLET (FP) PO PRN (22:26)
[2017-07-28] MEDS: ONDANSETRON 4 MG/2 ML VIAL IVPB PRN ×5 (02:40→22:11)
[2017-07-28] MEDS: DEXTROSE 5%-0.45% SALINE 1,000 ML IV SCH ×2 (02:42→15:46)
[2017-07-28] MEDS ORDERED: METHADONE HCL 10 MG TABLET (FOR DETOX USE ONLY) PO SCH (06:00)
[2017-07-28] MEDS ORDERED: METHADONE HCL 10 MG TABLET PO SCH ×2 (06:20→06:30)
--- NOTE | 2017-07-28 07:48 | CONSULT ---
Consult Detox [facility] Reason for Current Admission/Consult: evaluation of opioid dependence and withdrawal sx Referred by:: Romelia Cole - History History of Present Illness: 32 yo f transferred from [facility] after admission heroin detoxification gives h /o opioid use disorder >2 years started on methadone detox and developed severe nausea and vomiting requiring transfer and hospital admission for control of symptoms and hydration - History Source History Provided By: Patient, Medical Record, Caregiver, Transfer Record - Alcohol/Substance Use Hx Alcohol Use: No Hx Substance Use: Yes (heroin x 6 month) Hx Substance Use Treatment: Yes - Current Drug/Alcohol Use Heroin Route: Smoking Frequency: Daily Amount used: 2 bundles Age of first use: 32 Date of Last Use: 07/24/17 - Past Medical History ...LMP: 06/30/17 Additional Medical History: long history > 2years opioid use disorder pills/ suboxone illicit - Significant Medical Findings: comfortable, lying in beds, nausea and vomiting well controlled with iv zofran and ativan labs and imaging, chart reviewed Vital Signs - 8 hr 07/28/17 06:00 Temperature 99.3 F Pulse Rate 73 Respiratory 18 Rate Blood Pressure 126/74 Laboratory Tests 07/27/17 07/27/17 07/27/17 11:08 11:08 11:08 WBC 16.9 H RBC 5.39 H Hgb 16.2 H D Hct 47.0 H MCV 87.3 MCH 30.0 MCHC 34.4 RDW 13.1 Plt Count 398 MPV 7.4 L Neutrophils % 77.9 Lymphocytes % 14.4 Monocytes % 6.9 Eosinophils % 0.1 Basophils % 0.7 Sodium 138 Potassium 3.2 L Chloride 92 L D Carbon Dioxide 30 Anion Gap 16 BUN 14 D Creatinine 0.9 Creat Clearance w eGFR > 60 Random Glucose 101 Lactic Acid Calcium 9.8 Total Bilirubin 0.6 D AST 65 H D ALT 33 D Alkaline Phosphatase 68 Total Protein 7.9 Albumin 4.3 Lipase 206 Urine Color Conchis Urine Appearance Cloudy Urine pH 8.0 D Ur Specific Cyril 1.020 Urine Protein 2+ H Urine Glucose (UA) Negative Urine Ketones Trace H Urine Blood 3+ H Urine Nitrite Negative Urine Bilirubin Negative Urine Urobilinogen Negative Ur Leukocyte Esterase Trace H Urine RBC 966 Urine WBC 68 Ur Epithelial Cells Moderate Urine Bacteria Few Urine Mucus Moderate Urine HCG, Qual Negative 07/27/17 11:24 WBC RBC Hgb Hct MCV MCH MCHC RDW Plt Count MPV Neutrophils % Lymphocytes % Monocytes % Eosinophils % Basophils % Sodium Potassium Chloride Carbon Dioxide Anion Gap BUN Creatinine Creat Clearance w eGFR Random Glucose Lactic Acid 5.0 H* Calcium Total Bilirubin AST ALT Alkaline Phosphatase Total Protein Albumin Lipase Urine Color Urine Appearance Urine pH Ur Specific C[place]il Urine Protein Urine Glucose (UA) Urine Ketones Urine Blood Urine Nitrite Urine Bilirubin Urine Urobilinogen Ur Leukocyte Esterase Urine RBC Urine WBC Ur Epithelial Cells Urine Bacteria Urine Mucus Urine HCG, Qual hyokalemia COWS - Scale Resting Pulse: 0= WA 80 or Below Sweatin= No chills or Flushing Restless Observation: 1= Difficult to Sit Still Pupil Size: 0= Normal to Room Light Bone or Joint Aches: 1= Mild Discomfort Runny Nose/ Eye Tearin= Nasal Congestion GI Upset > 30mins: 2= Nausea/Diarrhea Tremor Observation: 0= None Yawning Observation: 0= None Anxiety or Irritability: 4=Extreme Anxiety Goose Flesh Skin: 0=Smooth Skin COWS Score: 9 Assessment Plan - Diagnosis (1) Opioid dependence with withdrawal Status: Acute (2) Nausea & vomiting Status: Acute (3) Nicotine dependence Status: Acute (4) Substance induced mood disorder Status: Acute (5) Substance-induced sleep disorder Status: Acute - Plan Plan: REstart methadone detox, recieved 20mg today will decrease as per protocol to 15mg tomorw. symptomatic relief of withdrawal, vitamins, ensure and thimaine ordered, ambien for sleep prn. cont prn zofran and ativan, may transfer back to [facility] when medically stable. Patient requesting evaluation for aftercare. supplement k - Medication Detox Regimen/Protocol: Methadone
[2017-07-28] MEDS: NICOTINE 21 MG/24 HOURS TOPICAL PATCH TD SCH (09:50)
[2017-07-28] MEDS ORDERED: FLU VACCINE QUAD 60 MCG/0.5 ML (MDV 17-18) IM ONE (10:00)
--- NOTE | 2017-07-28 14:43 | PN ---
Progress Note, Physician History of Present Illness: feeling good - Current Medication List Current Medications: Active Medications Dextrose/Sodium Chloride (D5-1/2ns -) 1,000 mls @ 100 mls/hr IV ASDIR [facility] Last Admin: 07/28/17 02:42 Dose: 100 mls/hr Ibuprofen (Motrin -) 600 mg PO Q6H PRN PRN Reason: FEVER Last Admin: 07/27/17 22:26 Dose: 600 mg Lorazepam (Ativan Injection -) 1 mg IVPUSH TID PRN PRN Reason: ANXIETY Methadone HCl (Dolophine -) 20 mg PO DAILY@0600 [facility] Last Admin: 07/28/17 06:56 Dose: 20 mg Methadone HCl (Dolophine -) 10 mg PO ONCE ONE Stop: 07/31/17 10:01 Methadone HCl (Dolophine -) 15 mg PO ONCE ONE Stop: 07/29/17 23:59 Methadone HCl (Dolophine -) 15 mg PO ONCE ONE Stop: 07/30/17 23:59 Methadone HCl (Dolophine -) 5 mg PO ONCE@0600 ONE Stop: 08/01/17 23:59 Nicotine (Nicoderm Patch -) 21 mg TD DAILY [facility] Last Admin: 07/28/17 09:50 Dose: 21 mg Ondansetron HCl (Zofran Injection) 4 mg IVPB Q4H PRN PRN Reason: NAUSEA AND/OR VOMITING Last Admin: 07/28/17 11:16 Dose: 4 mg Multivit/Folic Acid/Iron ( Vitamins (Sjr) -) 1 tab PO DAILY [facility] Thiamine HCl (Vitamin B1 -) 100 mg PO HS [facility] Zolpidem Tartrate (Ambien -) 10 mg PO HS PRN PRN Reason: INSOMNIA - Objective Vital Signs: Vital Signs Temperature 98.9 F 07/28/17 10:00 Pulse Rate 74 07/28/17 10:00 Respiratory Rate 20 07/28/17 10:00 Blood Pressure 116/70 07/28/17 10:00 O2 Sat by Pulse Oximetry (%) 98 07/28/17 09:00 Constitutional: Yes: Calm HENT: Yes: Atraumatic Neck: Yes: Supple Cardiovascular: Yes: Regular Rate and Rhythm Respiratory: Yes: CTA Bilaterally Gastrointestinal: Yes: Normal Bowel Sounds Extremities: Yes: WNL Neurological: Yes: Alert, Oriented Problem List - Problems (1) Nausea & vomiting Assessment/Plan: ivf prn zofran better Code(s): R11.2 - NAUSEA WITH VOMITING, UNSPECIFIED (2) Nicotine dependence Assessment/Plan: nicotine patch Code(s): F17.200 - NICOTINE DEPENDENCE, UNSPECIFIED, UNCOMPLICATED (3) Opiate withdrawal Assessment/Plan: detox consult done on methadone Code(s): F11.23 - OPIOID DEPENDENCE WITH WITHDRAWAL (4) Opioid dependence with withdrawal Code(s): F11.23 - OPIOID DEPENDENCE WITH WITHDRAWAL
[2017-07-28] MEDS: PRENATAL VITAMINS W/ FOLIC ACID TABLET (FP) PO SCH (15:46)
[2017-07-28] MEDS: ZOLPIDEM TARTRATE 5 MG TABLET PO PRN (22:11)
[2017-07-28] MEDS: THIAMINE HCL 100 MG TABLET (FP) PO SCH (22:11)
[2017-07-28] MEDS ORDERED: METHADONE HCL 5 MG TABLET PO ONE (23:59)
[2017-07-29] MEDS: ONDANSETRON 4 MG/2 ML VIAL IVPB PRN ×3 (06:49→21:46)
[2017-07-29] MEDS: IBUPROFEN 600 MG TABLET (FP) PO PRN (06:51)
[2017-07-29] MEDS: DEXTROSE 5%-0.45% SALINE 1,000 ML IV SCH ×2 (07:51→20:41)
[2017-07-29] MEDS ORDERED: METHADONE HCL 5 MG TABLET (FOR DETOX USE ONLY) PO ONE (10:00)
[2017-07-29] MEDS ORDERED: PT OWN MED DRAWER 7, Y5N ONE (10:48)
[2017-07-29] MEDS: PRENATAL VITAMINS W/ FOLIC ACID TABLET (FP) PO SCH (10:56)
[2017-07-29] MEDS: NICOTINE 21 MG/24 HOURS TOPICAL PATCH TD SCH (10:57)
[2017-07-29] MEDS ORDERED: METHADONE HCL 5 MG TABLET PO ONE (11:00)
--- NOTE | 2017-07-29 17:26 | PN ---
Progress Note, Physician History of Present Illness: feeling good - Current Medication List Current Medications: Active Medications Dextrose/Sodium Chloride (D5-1/2ns -) 1,000 mls @ 100 mls/hr IV ASDIR [facility] Last Admin: 07/29/17 07:51 Dose: 100 mls/hr Ibuprofen (Motrin -) 600 mg PO Q6H PRN PRN Reason: FEVER Last Admin: 07/29/17 06:51 Dose: 600 mg Methadone HCl (Dolophine -) 10 mg PO ONCE ONE Stop: 07/31/17 10:01 Methadone HCl (Dolophine -) 15 mg PO ONCE ONE Stop: 07/30/17 10:01 Methadone HCl (Dolophine -) 5 mg PO ONCE@0600 ONE Stop: 08/01/17 06:01 Nicotine (Nicoderm Patch -) 21 mg TD DAILY [facility] Last Admin: 07/29/17 10:57 Dose: 21 mg Ondansetron HCl (Zofran Injection) 4 mg IVPB Q4H PRN PRN Reason: NAUSEA AND/OR VOMITING Last Admin: 07/29/17 11:02 Dose: 4 mg Multivit/Folic Acid/Iron ( Vitamins (Sjr) -) 1 tab PO DAILY [facility] Last Admin: 07/29/17 10:56 Dose: 1 tab Thiamine HCl (Vitamin B1 -) 100 mg PO HS [facility] Last Admin: 07/28/17 22:11 Dose: 100 mg Zolpidem Tartrate (Ambien -) 10 mg PO HS PRN PRN Reason: INSOMNIA Last Admin: 07/28/17 22:11 Dose: 10 mg - Objective Vital Signs: Vital Signs Temperature 98.9 F 07/29/17 14:55 Pulse Rate 73 07/29/17 14:55 Respiratory Rate 18 07/29/17 10:00 Blood Pressure 105/59 07/29/17 14:55 O2 Sat by Pulse Oximetry (%) 99 07/29/17 09:00 Constitutional: Yes: No Distress HENT: Yes: Atraumatic Neck: Yes: Supple Cardiovascular: Yes: Regular Rate and Rhythm Respiratory: Yes: CTA Bilaterally Gastrointestinal: Yes: Normal Bowel Sounds Extremities: Yes: WNL Neurological: Yes: Alert, Oriented Problem List - Problems (1) Nausea & vomiting Assessment/Plan: ivf prn zofran Code(s): R11.2 - NAUSEA WITH VOMITING, UNSPECIFIED (2) Nicotine dependence Assessment/Plan: nicotine patch Code(s): F17.200 - NICOTINE DEPENDENCE, UNSPECIFIED, UNCOMPLICATED (3) Opiate withdrawal Assessment/Plan: detox consult done on methadone taper Code(s): F11.23 - OPIOID DEPENDENCE WITH WITHDRAWAL (4) Opioid dependence with withdrawal Code(s): F11.23 - OPIOID DEPENDENCE WITH WITHDRAWAL
[2017-07-29 18:49] LABS: BASOPHIL 0.8 % (0-2.0); EOSINOPHIL 5.4 % (0-4.5); MCH 30.2 pg (25.7-33.7); MCHC 33.6 g/dl (32.0-36.0); MEAN CELL VOLUME 89.8 fl (80-96); NEUTROPHILS 49.7 % (42.8-82.8); PLATELET COUNT 251 K/MM3 (134-434); WHITE BLOOD COUNT 7.8 K/mm3 (4.0-10.0)
[2017-07-29 19:37] LABS: ANION GAP 8 (8-16); CALCIUM 7.8 mg/dL (8.5-10.1); CO2 27 mmol/L (21-32); CREATININE 0.6 mg/dL (0.55-1.02); GLUCOSE,RANDOM 103 mg/dL (74-106); SGOT/AST 29 U/L (15-37); SGPT/ALT 38 U/L (12-78)
[2017-07-29 19:39] LABS: ALK PHOS 49 U/L (45-117); BILIRUBIN,TOTAL 0.3 mg/dL (0.2-1.0); TOT PROT 5.5 g/dl (6.4-8.2)
[2017-07-29] MEDS: THIAMINE HCL 100 MG TABLET (FP) PO SCH (21:41)
[2017-07-29] MEDS: ZOLPIDEM TARTRATE 5 MG TABLET PO PRN (21:42)
[2017-07-30] MEDS: ONDANSETRON 4 MG/2 ML VIAL IVPB PRN ×4 (06:25→22:48)
[2017-07-30] MEDS ORDERED: PT OWN MED DRAWER 7, Y5N ONE ×2 (08:53→21:18)
[2017-07-30] MEDS: NICOTINE 21 MG/24 HOURS TOPICAL PATCH TD SCH (09:03)
[2017-07-30] MEDS: PRENATAL VITAMINS W/ FOLIC ACID TABLET (FP) PO SCH (09:04)
[2017-07-30] MEDS: DEXTROSE 5%-0.45% SALINE 1,000 ML IV SCH ×2 (09:48→11:00)
[2017-07-30] MEDS ORDERED: METHADONE HCL 5 MG TABLET PO ONE (10:00)
--- NOTE | 2017-07-30 17:10 | PN ---
Progress Note, Physician History of Present Illness: feeling good - Current Medication List Current Medications: Active Medications Ibuprofen (Motrin -) 600 mg PO Q6H PRN PRN Reason: FEVER Last Admin: 07/29/17 06:51 Dose: 600 mg Methadone HCl (Dolophine -) 10 mg PO ONCE ONE Stop: 07/31/17 10:01 Methadone HCl (Dolophine -) 5 mg PO ONCE@0600 ONE Stop: 08/01/17 06:01 Nicotine (Nicoderm Patch -) 21 mg TD DAILY [facility] Last Admin: 07/30/17 09:03 Dose: 21 mg Ondansetron HCl (Zofran Injection) 4 mg IVPB Q4H PRN PRN Reason: NAUSEA AND/OR VOMITING Last Admin: 07/30/17 17:03 Dose: 4 mg Multivit/Folic Acid/Iron ( Vitamins (Sjr) -) 1 tab PO DAILY [facility] Last Admin: 07/30/17 09:04 Dose: 1 tab Thiamine HCl (Vitamin B1 -) 100 mg PO HS [facility] Last Admin: 07/29/17 21:41 Dose: 100 mg Zolpidem Tartrate (Ambien -) 10 mg PO HS PRN PRN Reason: INSOMNIA Last Admin: 07/29/17 21:42 Dose: 10 mg - Objective Vital Signs: Vital Signs Temperature 98.1 F 07/30/17 14:35 Pulse Rate 79 07/30/17 14:35 Respiratory Rate 18 07/30/17 14:35 Blood Pressure 98/56 07/30/17 14:35 O2 Sat by Pulse Oximetry (%) 99 07/30/17 09:00 Constitutional: Yes: No Distress HENT: Yes: Atraumatic Neck: Yes: Supple Cardiovascular: Yes: Regular Rate and Rhythm Respiratory: Yes: CTA Bilaterally Gastrointestinal: Yes: Normal Bowel Sounds Extremities: Yes: WNL Neurological: Yes: Alert, Oriented Labs: CBC, BMP 07/29/17 18:32 07/29/17 18:32 Problem List - Problems (1) Nausea & vomiting Assessment/Plan: much improved dc ivf Code(s): R11.2 - NAUSEA WITH VOMITING, UNSPECIFIED (2) Nicotine dependence Assessment/Plan: nicotine patch Code(s): F17.200 - NICOTINE DEPENDENCE, UNSPECIFIED, UNCOMPLICATED (3) Opiate withdrawal Assessment/Plan: detox consult done on methadone taper Code(s): F11.23 - OPIOID DEPENDENCE WITH WITHDRAWAL (4) Opioid dependence with withdrawal Code(s): F11.23 - OPIOID DEPENDENCE WITH WITHDRAWAL
[2017-07-30] MEDS: THIAMINE HCL 100 MG TABLET (FP) PO SCH (21:19)
[2017-07-30] MEDS: LORazepam 1 MG TABLET PO PRN (22:48)
[2017-07-31] MEDS: ONDANSETRON 4 MG/2 ML VIAL IVPB PRN ×4 (06:36→21:24)
[2017-07-31] MEDS ORDERED: METHADONE HCL 10 MG TABLET PO ONE (10:00)
[2017-07-31] MEDS: NICOTINE 21 MG/24 HOURS TOPICAL PATCH TD SCH (10:02)
[2017-07-31] MEDS: PRENATAL VITAMINS W/ FOLIC ACID TABLET (FP) PO SCH ×2 (10:05→11:32)
[2017-07-31] MEDS ORDERED: PT OWN MED DRAWER 7, Y5N ONE (11:28)
[2017-07-31] MEDS ORDERED: SODIUM CHLORIDE 1,000 ML IV SCH (13:00)
[2017-07-31] MEDS ORDERED: BISACODYL 10 MG SUPP.RECT RC ONE (13:00)
--- NOTE | 2017-07-31 14:35 | PN ---
Progress Note, Physician History of Present Illness: had nausea and vomitting today - Current Medication List Current Medications: Active Medications Sodium Chloride (Normal Saline -) 1,000 mls @ 100 mls/hr IV ASDIR [facility] Last Admin: 07/31/17 13:13 Dose: 100 mls/hr Ibuprofen (Motrin -) 600 mg PO Q6H PRN PRN Reason: FEVER Last Admin: 07/29/17 06:51 Dose: 600 mg Lorazepam (Ativan -) 1 mg PO HS PRN PRN Reason: INSOMNIA Last Admin: 07/30/17 22:48 Dose: 1 mg Methadone HCl (Dolophine -) 5 mg PO ONCE@0600 ONE Stop: 08/01/17 06:01 Nicotine (Nicoderm Patch -) 21 mg TD DAILY [facility] Last Admin: 07/31/17 10:02 Dose: 21 mg Ondansetron HCl (Zofran Injection) 4 mg IVPB Q4H PRN PRN Reason: NAUSEA AND/OR VOMITING Last Admin: 07/31/17 10:44 Dose: 4 mg Multivit/Folic Acid/Iron ( Vitamins (Sjr) -) 1 tab PO DAILY [facility] Last Admin: 07/31/17 11:32 Dose: 1 tab Thiamine HCl (Vitamin B1 -) 100 mg PO HS [facility] Last Admin: 07/30/17 21:19 Dose: 100 mg - Objective Vital Signs: Vital Signs Temperature 98.4 F 07/31/17 09:46 Pulse Rate 80 07/31/17 09:46 Respiratory Rate 20 07/31/17 09:46 Blood Pressure 103/60 07/31/17 09:46 O2 Sat by Pulse Oximetry (%) 97 07/31/17 10:30 Constitutional: Yes: Anxious HENT: Yes: Atraumatic Neck: Yes: Supple Cardiovascular: Yes: Regular Rate and Rhythm Respiratory: Yes: CTA Bilaterally Gastrointestinal: Yes: Normal Bowel Sounds Extremities: Yes: WNL Neurological: Yes: Alert, Oriented Labs: CBC, BMP 07/29/17 18:32 07/29/17 18:32 Problem List - Problems (1) Nausea & vomiting Assessment/Plan: much improved Code(s): R11.2 - NAUSEA WITH VOMITING, UNSPECIFIED (2) Nicotine dependence Assessment/Plan: nicotine patch Code(s): F17.200 - NICOTINE DEPENDENCE, UNSPECIFIED, UNCOMPLICATED (3) Opiate withdrawal Assessment/Plan: detox consult done on methadone taper Code(s): F11.23 - OPIOID DEPENDENCE WITH WITHDRAWAL (4) Opioid dependence with withdrawal Code(s): F11.23 - OPIOID DEPENDENCE WITH WITHDRAWAL
[2017-07-31] MEDS: THIAMINE HCL 100 MG TABLET (FP) PO SCH (21:24)
[2017-07-31] MEDS: LORazepam 1 MG TABLET PO PRN (21:24)
[2017-08-01] MEDS ORDERED: METHADONE HCL 5 MG TABLET PO ONE (06:00)
[2017-08-01] MEDS: ONDANSETRON 4 MG/2 ML VIAL IVPB PRN (06:44)
[2017-08-01] MEDS ORDERED: PT OWN MED DRAWER 7, Y5N ONE (09:44)
[2017-08-01] MEDS: NICOTINE 21 MG/24 HOURS TOPICAL PATCH TD SCH (09:47)
[2017-08-01] MEDS: PRENATAL VITAMINS W/ FOLIC ACID TABLET (FP) PO SCH (09:48)
--- NOTE | 2017-08-01 17:11 | PN ---
Progress Note, Physician - Current Medication List Current Medications: Active Medications Ibuprofen (Motrin -) 600 mg PO Q6H PRN PRN Reason: FEVER Last Admin: 07/29/17 06:51 Dose: 600 mg Lorazepam (Ativan -) 1 mg PO HS PRN PRN Reason: INSOMNIA Last Admin: 07/31/17 21:24 Dose: 1 mg Nicotine (Nicoderm Patch -) 21 mg TD DAILY [facility] Last Admin: 08/01/17 09:47 Dose: 21 mg Ondansetron HCl (Zofran Injection) 4 mg IVPB Q4H PRN PRN Reason: NAUSEA AND/OR VOMITING Last Admin: 08/01/17 06:44 Dose: 4 mg Multivit/Folic Acid/Iron ( Vitamins (Sjr) -) 1 tab PO DAILY [facility] Last Admin: 08/01/17 09:48 Dose: 1 tab Thiamine HCl (Vitamin B1 -) 100 mg PO HS [facility] Last Admin: 07/31/17 21:24 Dose: 100 mg - Objective Vital Signs: Vital Signs Temperature 98.4 F 08/01/17 14:04 Pulse Rate 109 H 08/01/17 14:23 Respiratory Rate 16 08/01/17 09:15 Blood Pressure 112/64 08/01/17 14:23 O2 Sat by Pulse Oximetry (%) 98 08/01/17 09:00 Constitutional: Yes: No Distress HENT: Yes: Atraumatic Neck: Yes: Supple Cardiovascular: Yes: Regular Rate and Rhythm Respiratory: Yes: CTA Bilaterally Gastrointestinal: Yes: Normal Bowel Sounds Extremities: Yes: WNL Neurological: Yes: Alert, Oriented Labs: CBC, BMP 07/29/17 18:32 07/29/17 18:32 Problem List - Problems (1) Nausea & vomiting Assessment/Plan: resolved Code(s): R11.2 - NAUSEA WITH VOMITING, UNSPECIFIED (2) Nicotine dependence Assessment/Plan: nicotine patch Code(s): F17.200 - NICOTINE DEPENDENCE, UNSPECIFIED, UNCOMPLICATED (3) Opiate withdrawal Assessment/Plan: detox consult done on methadone taper Code(s): F11.23 - OPIOID DEPENDENCE WITH WITHDRAWAL (4) Opioid dependence with withdrawal Code(s): F11.23 - OPIOID DEPENDENCE WITH WITHDRAWAL
[2017-08-01] MEDS: LORazepam 1 MG TABLET PO PRN (21:14)
[2017-08-01] MEDS: THIAMINE HCL 100 MG TABLET (FP) PO SCH (21:14)
[2017-08-02] MEDS ORDERED: PT OWN MED DRAWER 7, Y5N ONE (11:04)
[2017-08-02] MEDS: NICOTINE 21 MG/24 HOURS TOPICAL PATCH TD SCH (11:10)
[2017-08-02] MEDS: PRENATAL VITAMINS W/ FOLIC ACID TABLET (FP) PO SCH (11:11)
[2017-08-02] MEDS: ONDANSETRON 4 MG/2 ML VIAL IVPB PRN (13:30)
--- NOTE | 2017-08-02 15:20 | PN ---
Progress Note, Physician History of Present Illness: DOING WELL - Current Medication List Current Medications: Active Medications Ibuprofen (Motrin -) 600 mg PO Q6H PRN PRN Reason: FEVER Last Admin: 07/29/17 06:51 Dose: 600 mg Lorazepam (Ativan -) 1 mg PO HS PRN PRN Reason: INSOMNIA Last Admin: 08/01/17 21:14 Dose: 1 mg Nicotine (Nicoderm Patch -) 21 mg TD DAILY [facility] Last Admin: 08/02/17 11:10 Dose: 21 mg Ondansetron HCl (Zofran Injection) 4 mg IVPB Q4H PRN PRN Reason: NAUSEA AND/OR VOMITING Last Admin: 08/02/17 13:30 Dose: 4 mg Multivit/Folic Acid/Iron ( Vitamins (Sjr) -) 1 tab PO DAILY [facility] Last Admin: 08/02/17 11:11 Dose: 1 tab Thiamine HCl (Vitamin B1 -) 100 mg PO HS [facility] Last Admin: 08/01/17 21:14 Dose: 100 mg - Objective Vital Signs: Vital Signs Temperature 98.3 F 08/02/17 15:10 Pulse Rate 85 08/02/17 15:10 Respiratory Rate 18 08/02/17 15:10 Blood Pressure 101/58 08/02/17 15:10 O2 Sat by Pulse Oximetry (%) 100 08/02/17 11:03 Constitutional: Yes: No Distress HENT: Yes: Atraumatic Neck: Yes: Supple Cardiovascular: Yes: Regular Rate and Rhythm Respiratory: Yes: CTA Bilaterally Gastrointestinal: Yes: Normal Bowel Sounds Extremities: Yes: WNL Neurological: Yes: Alert, Oriented Labs: CBC, BMP 07/29/17 18:32 07/29/17 18:32 Problem List - Problems (1) Nausea & vomiting Assessment/Plan: RESOLVED Code(s): R11.2 - NAUSEA WITH VOMITING, UNSPECIFIED (2) Nicotine dependence Assessment/Plan: nicotine patch Code(s): F17.200 - NICOTINE DEPENDENCE, UNSPECIFIED, UNCOMPLICATED (3) Opiate withdrawal Assessment/Plan: detox consult done on methadone...COMPLETED PT WILL BE GOING T REHAB IN [facility] WHERE SHE LIV[facility] Code(s): F11.23 - OPIOID DEPENDENCE WITH WITHDRAWAL (4) Opioid dependence with withdrawal Code(s): F11.23 - OPIOID DEPENDENCE WITH WITHDRAWAL
[2017-08-02] MEDS: THIAMINE HCL 100 MG TABLET (FP) PO SCH (22:21)
[2017-08-03 06:05] VITALS: BP 102/55; PULSE 73; TEMP 98.6
[2017-08-03] MEDS: NICOTINE 21 MG/24 HOURS TOPICAL PATCH TD SCH (10:32)
[2017-08-03] MEDS: PRENATAL VITAMINS W/ FOLIC ACID TABLET (FP) PO SCH (10:32)
== END 2017-08-03 10:33 | disposition home or self-care (01) | DRG 773 ==
LOC: JER 10:17 → JERBED 13:13 → J5S 14:40 → OBSVTOIN 07-28 16:50 → J5S 07-29 19:05
PROVIDERS: ADMIT Internal Medicine; ATTEND Internal Medicine
DX: F11.23 Opioid dependence with withdrawal (principal); F17.210 Nicotine dependence, cigarettes, uncomplicated; R11.2 Nausea with vomiting, unspecified; E87.6 Hypokalemia; F11.24 Opioid dependence with opioid-induced mood disorder
CPT/HCPCS: 36415; 71020-TC; 80053; 81003; 81015; 83605; 83690; 84703; 85025; 90688; 99282-25; G0008; G0378